=== PATIENT | female | born 1935 | race Caucasian/White ===

== ENCOUNTER 2019-01-02 13:41 | Inpatient (IN) | payer MEDICARE, OTHER ==
[~2019-01-02] VITALS: Ht 165.1 cm; Wt 63.5 kg
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
[2019-01-02] MEDS ORDERED: METH10TA80 PO (13:51)
[2019-01-02] MEDS ORDERED: IV NS 0.9% 500 ML BAG IV ONE (14:00)
[2019-01-02 14:01] LABS: BASOPHILS % (AUTO) 0.6 % (0.0-2.0); HEMATOCRIT 46 % (33-45); HEMOGLOBIN 15.5 g/dL (11.5-14.8); LYMPHOCYTES # (AUTO) 0.9 /CMM (0.8-4.8); LYMPHOCYTES % (AUTO) 12.3 % (20.0-44.0); MEAN CORPUSCULAR HGB CONC 34 g/dl (31.0-36.0); MEAN CORPUSCULAR VOLUME 96 fL (82-100); MONOCYTES # (AUTO) 0.5 /CMM (0.1-1.30); MONOCYTES % (AUTO) 6.6 % (2.0-12.0); NEUTROPHILS # (AUTO) 5.6 /CMM (1.8-8.9); NEUTROPHILS % (AUTO) 78.5 % (43.0-81.0); PLATELET COUNT (AUTO) 190 /CMM (150-450); WHITE BLOOD COUNT (AUTO) 7.2 K/uL (4.3-11.0)
[2019-01-02 14:14] LABS: CALCIUM, SERUM 9.8 mg/dL (8.5-10.1); CARBON DIOXIDE 27 mmol/L (21-32); CHLORIDE 107 mmol/L (98-107); GLUCOSE 129 mg/dL (74-106); POTASSIUM 3.9 mmol/L (3.5-5.1); SODIUM SERUM 143 mmol/L (136-145); UREA NITROGEN, BLOOD 11 mg/dL (7-18)
[2019-01-02 14:19] LABS: ALANINE AMINOTRANSFERASE 25 U/L (12-78); ALBUMIN 3.7 g/dL (3.4-5.0); ALKALINE PHOSPHATASE 105 U/L (46-116); ASPARTATE AMINOTRANSFERASE 22 U/L (15-37); BILIRUBIN,DIRECT 0.2 mg/dL (0.0-0.2); BILIRUBIN,TOTAL 0.8 mg/dL (0.2-1.0); TOTAL PROTEIN, SERUM 7.5 g/dL (6.4-8.2)
[2019-01-02] MEDS ORDERED: ASPI-1169 PO (15:55)
[2019-01-02] MEDS ORDERED: ATOR40TA PO (15:55)
[2019-01-02 16:00] LABS: THYROID STIMULATING HORMONE 3.605 uIU/mL (0.358-3.74)
--- NOTE | 2019-01-02 16:04 | NUR ---
CALLED NURSING SUP REQUESTED TELE BED FOR THIS PATIENT
--- NOTE | 2019-01-02 16:04 | NUR ---
PAGED MARANDA FOR ADMISSION
[2019-01-02] MEDS ORDERED: IV NS 0.9% 1,000 ML IV PRN (16:16)
[2019-01-02] MEDS ORDERED: ONDANSETRON HCL/PF 4 MG/2 ML VIAL IVP PRN (16:30)
[2019-01-02] MEDS ORDERED: ZOLPIDEM TARTRATE 5 MG TABLET PO PRN (16:30)
[2019-01-02] MEDS ORDERED: ACETAMINOPHEN 325 MG TABLET PO PRN (16:30)
[2019-01-02] MEDS ORDERED: hydrALAZINE HCL 25 MG TABLET PO PRN (16:30)
[2019-01-02] MEDS ORDERED: MAGNESIUM HYDROXIDE 30 ML UDC PO PRN (16:30)
[2019-01-02] MEDS ORDERED: Z GUARD REMEDY 2 OZ OINT TP PRN (16:30)
[2019-01-02] MEDS ORDERED: HYDROCODONE/APAP 5/325MG 1 EACH TABLET PO PRN (16:30)
[2019-01-02] MEDS ORDERED: MAG HYDROX/AL HYDROX/SIMETH 30 ML UDC PO PRN (16:30)
[2019-01-02 16:31] LABS: APPEARANCE,URINE Clear (CLEAR); BILIRUBIN,URINE Negative (NEGATIVE); BLOOD, URINE Negative Ery/uL (NEGATIVE); COLOR,URINE Yellow (YELLOW); KETONES,URINE Negative (NEGATIVE); LEUKOCYTE ESTERASE ,URINE Trace (NEGATIVE); NITRITE, URINE Negative (NEGATIVE); PROTEIN,URINE Trace mg/dl (NEGATIVE); UGLUCOSE Negative (NEGATIVE); UROBILINOGEN,URINE 0.2 EU/dL (0.2)
--- NOTE | 2019-01-02 16:32 | NUR ---
ADMIT TO 114-1 TELE DX AMS ACCPEBRADLEY LOW
[2019-01-02 16:57] LABS: BACTERIA,URINE None seen /HPF (None Seen); RBC,URINE 0-2 /HPF (0-2); SQUAMOUS EPITHELIAL CELL,UR Few /HPF (None Seen)
[2019-01-02 17:00] VITALS: BP 144/73
[2019-01-02] MEDS ORDERED: ENOXAPARIN SODIUM 40 MG/0.4 ML DISP.SYRIN SQ SCH (17:02)
--- NOTE | 2019-01-02 17:07 | NUR ---
GIVEN BEDSIDE REPORT TO CHARGE NURSE LANIE PEACOCK AND LANIE SHEA FOR [place], PT WAS TRANSPORTED VIA [facility]
--- NOTE | 2019-01-02 17:15 | NUR ---
RN NOTE PT ARRIVED FROM ER ON GURNEY, AOX3, WITH DAUGHTER AT BEDSIDE, NO WEAKNESS NOTED IN EXTREMITIES, ABLE TO AMBULATE, SPEECH CLEAR, FACE SYMMETRICAL, ABLE TO SWALLOW WITHOUT DIFFICULTY, SR 72 ON TEMPLATE REPRODUCTION TECHNICIAN, VS STABLE, IV INTACT AND IN PLACE, SKIN INTACT. SAFETY MEASURES IN PLACE, CALL LIGHT WITHIN REACH, WILL MONITOR AND CARRY OUT ADMITTING ORDERS.
[2019-01-02] MEDS: BLOOD SUGAR DIAGNOSTIC 1 EACH STRIP IN SCH ×2 (17:41→22:35)
--- NOTE | 2019-01-02 19:30 | NUR ---
DENTAL SURGEON PT DECLINED SCDs.
[2019-01-02 20:00] VITALS: BP 140/66
[2019-01-02] MEDS ORDERED: ALPRAZOLAM 0.25 MG TABLET PO ONE (21:00)
[2019-01-03] VITALS: BP 125/52
[2019-01-03 04:00] VITALS: BP 145/65
--- NOTE | 2019-01-03 07:10 | NUR ---
ENGRAVER SET UP OPERATOR INITIAL NOTE RECEIVED PT RESTING IN BED AOX3. ON ROOM AIR, TOLERATING WELL, NO SOB AND DISTRESS NOTED. NO WEAKNESS NOTED IN EXTREMITIES, SPEECH CLEAR, FACE SYMMETRICAL, ABLE TO SWALLOW WITHOUT DIFFICULTY, ON TELE MONITOR SR WITH HR 65. IV SITE LEFT AC 20G, INTACT AND IN PLACE, NS RUNNING AT 75ML/HR, NO INFILTRATION NOTED. SAFETY MEASURES IN PLACE, CALL LIGHT WITHIN REACH, WILL CONTINUE TO MONITOR PT THROUGHOUT SHIFT.
[2019-01-03 07:58] LABS: BASOPHILS % (AUTO) 0.9 % (0.0-2.0); EOSINOPHILS % (AUTO) 5.1 % (0.0-6.0); HEMATOCRIT 40 % (33-45); HEMOGLOBIN 13.3 g/dL (11.5-14.8); LYMPHOCYTES % (AUTO) 20.9 % (20.0-44.0); MEAN CORPUSCULAR HGB CONC 34 g/dl (31.0-36.0); MEAN CORPUSCULAR VOLUME 97 fL (82-100); MONOCYTES # (AUTO) 0.5 /CMM (0.1-1.30); MONOCYTES % (AUTO) 9.3 % (2.0-12.0); NEUTROPHILS # (AUTO) 3.2 /CMM (1.8-8.9); NEUTROPHILS % (AUTO) 63.8 % (43.0-81.0); PLATELET COUNT (AUTO) 178 /CMM (150-450); RED BLOOD CELL COUNT(AUTO) 4.11 MIL/uL (4.0-5.2)
[2019-01-03 08:00] VITALS: BP_SYST 143; BP_SYST 152; BP_DIAS 65; BP_DIAS 70
[2019-01-03] MEDS: BLOOD SUGAR DIAGNOSTIC 1 EACH STRIP IN SCH (08:00)
[2019-01-03 08:35] LABS: CALCIUM, SERUM 9.1 mg/dL (8.5-10.1); CARBON DIOXIDE 29 mmol/L (21-32); CHLORIDE 111 mmol/L (98-107); CREATININE 0.8 mg/dL (0.6-1.3); GLUCOSE 88 mg/dL (74-106); MAGNESIUM 1.9 mg/dL (1.8-2.4); PHOSPHORUS 3.5 mg/dL (2.5-4.9); SODIUM SERUM 146 mmol/L (136-145); UREA NITROGEN, BLOOD 10 mg/dL (7-18)
[2019-01-03 08:37] LABS: CHOLESTEROL 174 mg/dL (<200); HDL CHOLESTEROL 84 mg/dL (40-60); LDL 77 mg/dL (0-99); TRIGLYCERIDES 75 mg/dL (30-150)
[2019-01-03] MEDS ORDERED: ASPIRIN EC 325 MG TABLET.DR PO SCH ×2 (09:00)
[2019-01-03] MEDS ORDERED: ALPRAZOLAM 0.5 MG TABLET PO PRN (09:00)
[2019-01-03] MEDS ORDERED: METHIMAZOLE (5MG) 5 MG TABLET PO SCH (09:00)
[2019-01-03] MEDS ORDERED: ASPIRIN 81 MG TAB.CHEW PO SCH (09:00)
--- NOTE | 2019-01-03 11:35 | NUR ---
ADMINISTRATOR SOCIAL WELFARE NOTES DISCHARGE ORDER PER MD NOTED. PATIENT ALERT AND ORIENTED X3. ON ROOM AIR, TOLERATING WELL, NO SOB AND DISTRESS NOTED. NO WEAKNESS NOTED IN EXTREMITIES, SPEECH CLEAR, FACE SYMMETRICAL, ABLE TO SWALLOW WITHOUT DIFFICULTY. ALL NEEDS MET. ALL MD ORDERS ATTENDED. IV REMOVED, SITE CLEAN DRY AND INTACT. EXIT CARE DONE. DISCHARGE PAPERS SIGNED AND RECORDED. PT LEFT THE UNIT WITH DAUGHTER TIA.
[2019-01-03] MEDS ORDERED: ATORVASTATIN 40 MG TABLET PO SCH (22:00)
== END 2019-01-03 11:45 | disposition home or self-care (01) | DRG 69 ==
LOC: ER 13:47 → TELE1 16:40 → MEDSG1 01-03 08:20
PROVIDERS: ADMIT Internal Medicine; ATTEND Internal Medicine
DX: G45.9 Transient cerebral ischemic attack, unspecified (principal); K51.90 Ulcerative colitis, unspecified, without complications; E78.5 Hyperlipidemia, unspecified; E05.90 Thyrotoxicosis, unspecified without thyrotoxic crisis or storm; Z86.73 Personal history of transient ischemic attack (TIA), and cerebral infarction without residual deficits; Z79.899 Other long term (current) drug therapy; Z79.82 Long term (current) use of aspirin; F41.9 Anxiety disorder, unspecified
CPT/HCPCS: 36415; 70450-TC; 71045-TC; 80048-TC; 80061-TC; 80076-TC; 80305; 81000-TC; 82962-TC; 83735-TC; 84100-TC; 84439-TC; 84443-TC; 84484-TC; 85025-TC; 85652-TC; 85730-TC; 87081-TC; 87086-TC; 92611-TC; 93307-TC; 93880-TC; G0378; J1650; J7030; J7040

== ENCOUNTER 2019-12-08 14:22 | Emergency (ER) | payer MEDICARE, OTHER ==
[~2019-12-08] VITALS: Ht 162.6 cm; Wt 62.6 kg
[~2019-12-08 14:22] MED LIST: ASPI-1169 PO; ATOR40TA PO; METH10TA80 PO
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
[2019-12-08] MEDS ORDERED: ASPI-1169 PO (15:00)
[2019-12-08] MEDS ORDERED: METO25TA3 PO (15:00)
[2019-12-08] MEDS ORDERED: METH10TA80 PO (15:00)
[2019-12-08 15:20] LABS: BASOPHILS # (AUTO) 0.1 /CMM (0.0-0.2); BASOPHILS % (AUTO) 0.8 % (0.0-2.0); EOSINOPHILS % (AUTO) 0.8 % (0.0-6.0); HEMATOCRIT 44 % (33-45); HEMOGLOBIN 14.5 g/dL (11.5-14.8); LYMPHOCYTES # (AUTO) 0.8 /CMM (0.8-4.8); LYMPHOCYTES % (AUTO) 9.4 % (20.0-44.0); MEAN CORPUSCULAR HGB CONC 33 g/dl (31.0-36.0); MEAN CORPUSCULAR VOLUME 96 fL (82-100); MONOCYTES # (AUTO) 0.6 /CMM (0.1-1.30); MONOCYTES % (AUTO) 7.2 % (2.0-12.0); NEUTROPHILS # (AUTO) 6.6 /CMM (1.8-8.9); NEUTROPHILS % (AUTO) 81.8 % (43.0-81.0); PLATELET COUNT (AUTO) 185 /CMM (150-450); RED BLOOD CELL COUNT(AUTO) 4.53 MIL/uL (4.0-5.2); WHITE BLOOD COUNT (AUTO) 8.1 K/uL (4.3-11.0)
[2019-12-08 15:34] LABS: CARBON DIOXIDE 26 mmol/L (21-32); CHLORIDE 109 mmol/L (98-107); CREATININE 0.9 mg/dL (0.6-1.3); GLUCOSE 105 mg/dL (74-106); SODIUM SERUM 144 mmol/L (136-145); UREA NITROGEN, BLOOD 13 mg/dL (7-18)
--- NOTE | 2019-12-08 15:37 | NUR ---
BROUGHT TO CT
[2019-12-08 15:39] LABS: ALANINE AMINOTRANSFERASE 17 U/L (12-78); ALBUMIN 3.5 g/dL (3.4-5.0); ALKALINE PHOSPHATASE 89 U/L (46-116); ASPARTATE AMINOTRANSFERASE 22 U/L (15-37); BILIRUBIN,DIRECT 0.1 mg/dL (0.0-0.2); BILIRUBIN,TOTAL 0.9 mg/dL (0.2-1.0); TOTAL PROTEIN, SERUM 6.9 g/dL (6.4-8.2)
--- NOTE | 2019-12-08 15:52 | NUR ---
BROUGHT BACK FROM CT
--- NOTE | 2019-12-08 16:35 | NUR ---
Patient discharged to home in stable condition. Written and verbal after care instructions given. Patient verbalizes understanding of instruction. Pt ambulated with steady gait. VSS. Left with family.
[2019-12-08 16:36] VITALS: BP 152/88
== END 2019-12-08 16:44 | disposition home or self-care (01) ==
LOC: ER 14:26
DX: G45.9 Transient cerebral ischemic attack, unspecified (principal); E05.90 Thyrotoxicosis, unspecified without thyrotoxic crisis or storm; E78.5 Hyperlipidemia, unspecified; Z90.49 Acquired absence of other specified parts of digestive tract; Z98.890 Other specified postprocedural states; Z60.2 Problems related to living alone; Z79.82 Long term (current) use of aspirin; Z79.899 Other long term (current) drug therapy
CPT/HCPCS: 36415; 70450-TC; 71045-TC; 80048-TC; 80076-TC; 84484-TC; 85025-TC; 85730-TC

== ENCOUNTER 2023-11-12 16:44 | Inpatient (IN) | payer MEDICARE, BC ==
[~2023-11-12] VITALS: Ht 167.6 cm; Wt 65.9 kg
[~2023-11-12 16:44] MED LIST changes: +METO25TA3 PO
[2023-11-12] MEDS ORDERED: ONDANSETRON HCL/PF 4 MG/2 ML VIAL IVP PRN (21:30)
[2023-11-12] MEDS ORDERED: LORAZEPAM INJ 2 MG/ML VIAL IV ONE (22:00)
[2023-11-12] MEDS ORDERED: HYDROMORPHONE 1 MG/1 ML DISP.SYRIN IV PRN (22:30)
[2023-11-12] MEDS: IV NS 0.9% 1,000 ML IV PRN (22:31)
[2023-11-12] MEDS ORDERED: ZOSYN IVPB 3.375 G in IV D5W 50ml IV SCH (23:00)
[2023-11-12] MEDS ORDERED: LORAZEPAM INJ 2 MG/ML VIAL ONE (23:03)
[2023-11-13] MEDS ORDERED: PIPERACI/TAZO 3.375GM/D5W 50ML PB IV ONE (00:09)
[2023-11-13 03:35] LABS: BASOPHILS # (AUTO) 0.1 K/uL (0.0-0.2); BASOPHILS % (AUTO) 0.4 % (0.0-2.0); HEMATOCRIT 43 % (33-45); HEMOGLOBIN 13.9 g/dL (11.5-14.8); LYMPHOCYTES # (AUTO) 0.7 K/uL (0.8-4.8); LYMPHOCYTES % (AUTO) 2.7 % (20.0-44.0); MEAN CORPUSCULAR HEMOGLOBIN 32 PG (26.0-33.0); MEAN CORPUSCULAR HGB CONC 32 g/dl (31.0-36.0); MEAN CORPUSCULAR VOLUME 97 fL (82-100); MONOCYTES # (AUTO) 1.7 K/uL (0.1-1.30); MONOCYTES % (AUTO) 6.9 % (2.0-12.0); NEUTROPHILS # (AUTO) 21.9 K/uL (1.8-8.9); PLATELET COUNT (AUTO) 138 K/uL (150-450); RED BLOOD CELL COUNT(AUTO) 4.42 MIL/uL (4.0-5.2); RED CELL DISTRIBUTION WIDTH 15.9 % (11.5-15.0); WHITE BLOOD COUNT (AUTO) 24.3 K/uL (4.3-11.0)
[2023-11-13 03:48] LABS: BILIRUBIN,DIRECT 0.3 mg/dL (0.0-0.2); BILIRUBIN,TOTAL 1.6 mg/dL (0.2-1.0); CALCIUM, SERUM 9.2 mg/dL (8.5-10.1); CREATININE 0.9 mg/dL (0.6-1.3); INR 1.03 (0.91-1.10); MAGNESIUM 2.3 mg/dL (1.8-2.4); PARTIAL THROMBOPLASTIN TIME 25.3 SEC (24.3-34.3); PHOSPHORUS 3.7 mg/dL (2.5-4.9); POTASSIUM 4.3 mmol/L (3.5-5.1); PROTHROMBIN TIME 10.9 SECS (9.2-11.1)
[2023-11-13 03:55] LABS: ALBUMIN 2.5 g/dL (3.4-5.0)
[2023-11-13] MEDS ORDERED: IOHEXOL 50 ML IV ONE (04:30)
[2023-11-13] MEDS ORDERED: INDOMETHACIN 100 MG SUPP.RECT ONE (04:30)
[2023-11-13] MEDS ORDERED: ANESTHESIA TRAY IN PYXIS 1 EA TRAY MC ONE (04:30)
[2023-11-13 04:46] VITALS: BP 133/59; TEMP 98.7; O2SAT 95
[2023-11-13] MEDS ORDERED: FENTANYL PF 100MCG/2ML AMPUL ONE (04:48)
[2023-11-13] MEDS ORDERED: ATOR80TA PO (08:17)
[2023-11-13] MEDS ORDERED: LOSA25TA27 PO (08:17)
[2023-11-13] MEDS ORDERED: ALPR0.5T8 PO (08:17)
[2023-11-13] MEDS: PANTOPRAZOLE 40 MG VIAL IV SCH (08:43)
[2023-11-13 09:03] LABS: BASOPHILS % (AUTO) 0.1 % (0.0-2.0); HEMATOCRIT 39 % (33-45); HEMOGLOBIN 12.8 g/dL (11.5-14.8); LYMPHOCYTES # (AUTO) 0.4 K/uL (0.8-4.8); LYMPHOCYTES % (AUTO) 1.8 % (20.0-44.0); MEAN CORPUSCULAR HEMOGLOBIN 32 PG (26.0-33.0); MEAN CORPUSCULAR HGB CONC 33 g/dl (31.0-36.0); MEAN CORPUSCULAR VOLUME 96 fL (82-100); MONOCYTES % (AUTO) 4.8 % (2.0-12.0); NEUTROPHILS % (AUTO) 93.3 % (43.0-81.0); PLATELET COUNT (AUTO) 135 K/uL (150-450); RED BLOOD CELL COUNT(AUTO) 4.06 MIL/uL (4.0-5.2); WHITE BLOOD COUNT (AUTO) 21.5 K/uL (4.3-11.0)
[2023-11-13 09:25] LABS: ALBUMIN 2.2 g/dL (3.4-5.0); BILIRUBIN,TOTAL 1.4 mg/dL (0.2-1.0); CALCIUM, SERUM 8.7 mg/dL (8.5-10.1); CREATININE 0.9 mg/dL (0.6-1.3); POTASSIUM 4.2 mmol/L (3.5-5.1); TOTAL PROTEIN, SERUM 6.3 g/dL (6.4-8.2)
[2023-11-13 10:31] LABS: PHOSPHORUS 2.9 mg/dL (2.5-4.9)
[2023-11-13 10:40] LABS: THYROID STIMULATING HORMONE 0.977 uIU/mL (0.358-3.74)
[2023-11-13] MEDS: PIPERACILLIN /TAZOBACTAM 3.375 G in IV D5W 100 ML IV SCH ×2 (11:45→20:23)
[2023-11-13 12:00] VITALS: BP 128/62; TEMP 98.8; O2SAT 95
[2023-11-13] MEDS: ACETAMINOPHEN 325 MG TABLET PO PRN (14:43)
[2023-11-13] MEDS ORDERED: LORAZEPAM 0.5 MG TABLET PO PRN (15:00)
[2023-11-13] MEDS: IV NS 0.9% 1,000 ML IV PRN (19:34)
[2023-11-13 20:51] VITALS: BP 118/57; TEMP 98; O2SAT 94
[2023-11-14] MEDS: PIPERACILLIN /TAZOBACTAM 3.375 G in IV D5W 100 ML IV SCH (03:54)
[2023-11-14 04:00] VITALS: BP 123/64; TEMP 98.1; O2SAT 94
[2023-11-14] MEDS ORDERED: ANESTHESIA TRAY IN PYXIS 1 EA TRAY MC ONE (05:57)
[2023-11-14] MEDS ORDERED: BUPIVACAINE MPF 0.5% W/EPI INJ 30 ML VIAL ONE (05:57)
[2023-11-14] MEDS ORDERED: BACITRACIN ZINC OINT (15 GM) 15 GM TUBE TP ONE (05:58)
[2023-11-14] MEDS ORDERED: LIDOCAINE 1% INJ 50 ML MDV IJ ONE (05:58)
[2023-11-14] MEDS ORDERED: FENTANYL PF 250MCG/5ML AMPUL ONE (06:27)
[2023-11-14] MEDS ORDERED: ROCURONIUM BROMIDE 50 MG/5 ML ONE (06:28)
[2023-11-14] MEDS ORDERED: PHYTONADIONE INJ 10 MG/1 ML AMPUL ONE (08:03)
[2023-11-14] MEDS: PANTOPRAZOLE 40 MG VIAL IV SCH (09:00)
[2023-11-14] MEDS ORDERED: FENTANYL PF 100MCG/2ML AMPUL ONE (10:26)
[2023-11-14] MEDS: HYDROMORPHONE INJ 2 MG/ML DISP.SYRIN IV PRN (11:12)
[2023-11-14 12:00] VITALS: BP 140/62; TEMP 98; O2SAT 94
[2023-11-14] MEDS: CELECOXIB 100 MG CAPSULE PO SCH ×3 (12:00→23:02)
[2023-11-14] MEDS: GABAPENTIN 300 MG CAPSULE PO SCH ×2 (12:00→20:04)
[2023-11-14] MEDS ORDERED: ACETAMINOPHEN 325 MG TABLET PO PRN (12:00)
[2023-11-14] MEDS: ZOSYN IVPB 3.375 G in IV D5W 50ml IV SCH ×3 (12:06→23:02)
[2023-11-14] MEDS: IV LR 1000 ML 1,000 ML IV PRN (15:28)
[2023-11-14 17:02] VITALS: BP 107/54; TEMP 98.2; O2SAT 95
[2023-11-14] MEDS: ACETAMINOPHEN 325 MG TABLET PO PRN (18:22)
[2023-11-14 20:00] VITALS: BP 112/57; TEMP 97.9; O2SAT 95
[2023-11-15] MEDS: HYDROMORPHONE INJ 2 MG/ML DISP.SYRIN IV PRN ×2 (01:58→08:41)
[2023-11-15] MEDS: IV LR 1000 ML 1,000 ML IV PRN ×3 (03:01→23:01)
[2023-11-15 04:00] VITALS: BP 108/60; TEMP 97.5; O2SAT 96
[2023-11-15] MEDS: GABAPENTIN 300 MG CAPSULE PO SCH ×3 (04:14→20:21)
[2023-11-15] MEDS: ZOSYN IVPB 3.375 G in IV D5W 50ml IV SCH ×4 (05:33→23:09)
[2023-11-15 07:20] LABS: EOSINOPHILS % (AUTO) 0.1 % (0.0-6.0); HEMATOCRIT 35 % (33-45); HEMOGLOBIN 11.6 g/dL (11.5-14.8); LYMPHOCYTES # (AUTO) 0.5 K/uL (0.8-4.8); LYMPHOCYTES % (AUTO) 3.3 % (20.0-44.0); MEAN CORPUSCULAR HEMOGLOBIN 32 PG (26.0-33.0); MEAN CORPUSCULAR HGB CONC 33 g/dl (31.0-36.0); MEAN CORPUSCULAR VOLUME 95 fL (82-100); MONOCYTES # (AUTO) 0.6 K/uL (0.1-1.30); MONOCYTES % (AUTO) 4.7 % (2.0-12.0); NEUTROPHILS # (AUTO) 12.7 K/uL (1.8-8.9); NEUTROPHILS % (AUTO) 91.9 % (43.0-81.0); PLATELET COUNT (AUTO) 179 K/uL (150-450); RED BLOOD CELL COUNT(AUTO) 3.69 MIL/uL (4.0-5.2); WHITE BLOOD COUNT (AUTO) 13.9 K/uL (4.3-11.0)
[2023-11-15 07:32] LABS: ALBUMIN 1.5 g/dL (3.4-5.0); BILIRUBIN,DIRECT 0.3 mg/dL (0.0-0.2); BILIRUBIN,TOTAL 0.8 mg/dL (0.2-1.0); TOTAL PROTEIN, SERUM 5.5 g/dL (6.4-8.2)
[2023-11-15 07:49] LABS: CALCIUM, SERUM 7.3 mg/dL (8.5-10.1); CREATININE 0.9 mg/dL (0.6-1.3); MAGNESIUM 2.2 mg/dL (1.8-2.4); PHOSPHORUS 3.5 mg/dL (2.5-4.9); POTASSIUM 4.1 mmol/L (3.5-5.1)
[2023-11-15] MEDS: PANTOPRAZOLE 40 MG TABLET.DR PO SCH (08:31)
[2023-11-15] MEDS ORDERED: HYDROCODONE/APAP 5/325MG TABLET PO PRN (11:00)
[2023-11-15] MEDS: METHIMAZOLE (5MG) 5 MG TABLET PO SCH (11:10)
[2023-11-15] MEDS: LOSARTAN POTASSIUM 25 MG TABLET PO SCH (11:10)
[2023-11-15] MEDS: CELECOXIB 100 MG CAPSULE PO SCH ×2 (11:12→23:09)
[2023-11-15] MEDS ORDERED: MAGNESIUM HYDROXIDE 30 ML UDC PO PRN (13:30)
[2023-11-15 16:00] VITALS: BP 136/62; TEMP 98; O2SAT 95
[2023-11-15 17:04] LABS: HEMOGLOBIN 12.2 g/dL (11.5-14.8)
[2023-11-15] MEDS: HYDROMORPHONE 1 MG/1 ML DISP.SYRIN IV PRN (18:09)
[2023-11-15 20:00] VITALS: BP 117/55; TEMP 97.9; O2SAT 98
[2023-11-15] MEDS: LORAZEPAM INJ 2 MG/ML VIAL IV SCH (22:00)
[2023-11-15] MEDS: ATORVASTATIN 40 MG TABLET PO SCH (22:00)
[2023-11-15] MEDS ORDERED: diphenhydrAMINE HCL 50 MG/ML VIAL IV ONE (23:00)
[2023-11-16 04:00] VITALS: BP 125/59; TEMP 98.4; O2SAT 96
[2023-11-16] MEDS: GABAPENTIN 300 MG CAPSULE PO SCH ×4 (04:00→20:25)
[2023-11-16] MEDS: HYDROMORPHONE 1 MG/1 ML DISP.SYRIN IV PRN ×2 (04:52→13:20)
[2023-11-16] MEDS: ZOSYN IVPB 3.375 G in IV D5W 50ml IV SCH (05:04)
[2023-11-16 07:04] LABS: BASOPHILS % (AUTO) 0.1 % (0.0-2.0); EOSINOPHILS # (AUTO) 0.1 K/uL (0.0-0.7); EOSINOPHILS % (AUTO) 0.5 % (0.0-6.0); HEMATOCRIT 27 % (33-45); HEMOGLOBIN 9.3 g/dL (11.5-14.8); LYMPHOCYTES # (AUTO) 0.6 K/uL (0.8-4.8); LYMPHOCYTES % (AUTO) 4.6 % (20.0-44.0); MEAN CORPUSCULAR HEMOGLOBIN 32 PG (26.0-33.0); MEAN CORPUSCULAR HGB CONC 34 g/dl (31.0-36.0); MEAN CORPUSCULAR VOLUME 94 fL (82-100); MONOCYTES # (AUTO) 1.1 K/uL (0.1-1.30); MONOCYTES % (AUTO) 8.5 % (2.0-12.0); NEUTROPHILS # (AUTO) 10.8 K/uL (1.8-8.9); NEUTROPHILS % (AUTO) 86.3 % (43.0-81.0); PLATELET COUNT (AUTO) 157 K/uL (150-450); RED CELL DISTRIBUTION WIDTH 14.7 % (11.5-15.0); WHITE BLOOD COUNT (AUTO) 12.6 K/uL (4.3-11.0)
[2023-11-16 08:00] VITALS: BP 108/59; TEMP 98.6; O2SAT 96
[2023-11-16 08:07] LABS: BILIRUBIN,TOTAL 0.9 mg/dL (0.2-1.0); CALCIUM, SERUM 8.5 mg/dL (8.5-10.1); CREATININE 0.8 mg/dL (0.6-1.3); MAGNESIUM 2.3 mg/dL (1.8-2.4); PHOSPHORUS 2.2 mg/dL (2.5-4.9); POTASSIUM 3.4 mmol/L (3.5-5.1); TOTAL PROTEIN, SERUM 5.1 g/dL (6.4-8.2)
[2023-11-16 08:37] LABS: ALBUMIN 1.2 g/dL (3.4-5.0)
[2023-11-16] MEDS: PANTOPRAZOLE 40 MG TABLET.DR PO SCH (09:00)
[2023-11-16] MEDS: LOSARTAN POTASSIUM 25 MG TABLET PO SCH (09:00)
[2023-11-16] MEDS: IV LR 1000 ML 1,000 ML IV PRN (09:42)
[2023-11-16] MEDS ORDERED: POTASSIUM CHLORIDE 20 MEQ POWDER PACKET PO ONE (10:00)
[2023-11-16] MEDS: Potassium Chloride 10 MEQ, LIDOCAINE HCL/PF 1% 1 ML in IV D5W 50 ML IV SCH ×2 (10:29→11:57)
[2023-11-16] MEDS: METHIMAZOLE (5MG) 5 MG TABLET PO SCH ×2 (11:00→11:57)
[2023-11-16] MEDS: CELECOXIB 100 MG CAPSULE PO SCH ×2 (11:57→12:00)
[2023-11-16 16:00] VITALS: BP 116/53; TEMP 98.8; O2SAT 95
[2023-11-16] MEDS ORDERED: K PHOS NEUTRAL 250 MG TABLET PO ONE (16:00)
[2023-11-16] MEDS: PIPERACILLIN /TAZOBACTAM 3.375 G in IV D5W 100 ML IV SCH ×2 (16:27→20:26)
[2023-11-16] MEDS ORDERED: NEUTRA PHOS 1 POWD.PACKET GT ONE (16:30)
[2023-11-16] MEDS ORDERED: PIPERACILLIN /TAZOBACTAM 3.375 G in IV D5W 50 ML IV SCH (18:00)
[2023-11-16 20:00] VITALS: BP 134/52; TEMP 98.6; O2SAT 95
[2023-11-16] MEDS: ATORVASTATIN 40 MG TABLET PO SCH (21:44)
[2023-11-16] MEDS: LORAZEPAM INJ 2 MG/ML VIAL IV SCH (22:00)
[2023-11-16] MEDS: ALPRAZOLAM 0.25 MG TABLET PO PRN (22:06)
[2023-11-17] MEDS: CELECOXIB 100 MG CAPSULE PO SCH ×2 (00:15→11:58)
[2023-11-17 04:00] VITALS: BP 117/50; TEMP 99; O2SAT 95
[2023-11-17] MEDS: GABAPENTIN 300 MG CAPSULE PO SCH ×3 (04:29→20:47)
[2023-11-17] MEDS: PIPERACILLIN /TAZOBACTAM 3.375 G in IV D5W 100 ML IV SCH ×3 (04:29→21:15)
[2023-11-17] MEDS: IV LR 1000 ML 1,000 ML IV PRN (04:30)
[2023-11-17 06:51] LABS: BASOPHILS % (AUTO) 0.2 % (0.0-2.0); EOSINOPHILS # (AUTO) 0.4 K/uL (0.0-0.7); EOSINOPHILS % (AUTO) 3.5 % (0.0-6.0); HEMATOCRIT 24 % (33-45); HEMOGLOBIN 8.2 g/dL (11.5-14.8); LYMPHOCYTES # (AUTO) 0.6 K/uL (0.8-4.8); LYMPHOCYTES % (AUTO) 5.3 % (20.0-44.0); MEAN CORPUSCULAR HEMOGLOBIN 32 PG (26.0-33.0); MEAN CORPUSCULAR HGB CONC 34 g/dl (31.0-36.0); MEAN CORPUSCULAR VOLUME 94 fL (82-100); MONOCYTES # (AUTO) 0.9 K/uL (0.1-1.30); MONOCYTES % (AUTO) 7.5 % (2.0-12.0); NEUTROPHILS # (AUTO) 9.7 K/uL (1.8-8.9); NEUTROPHILS % (AUTO) 83.5 % (43.0-81.0); PLATELET COUNT (AUTO) 169 K/uL (150-450); RED BLOOD CELL COUNT(AUTO) 2.59 MIL/uL (4.0-5.2); RED CELL DISTRIBUTION WIDTH 14.7 % (11.5-15.0); WHITE BLOOD COUNT (AUTO) 11.6 K/uL (4.3-11.0)
[2023-11-17 07:13] LABS: CALCIUM, SERUM 8.4 mg/dL (8.5-10.1); CHLORIDE 108 mmol/L (98-107); CREATININE 0.8 mg/dL (0.6-1.3); GLUCOSE 112 mg/dL (74-106); MAGNESIUM 2.4 mg/dL (1.8-2.4); PHOSPHORUS 2.6 mg/dL (2.5-4.9); POTASSIUM 3.5 mmol/L (3.5-5.1); SODIUM SERUM 142 mmol/L (136-145)
[2023-11-17 07:47] LABS: CARBON DIOXIDE 27 mmol/L (21-32); UREA NITROGEN, BLOOD 18 mg/dL (7-18)
[2023-11-17 08:00] VITALS: BP 132/55; TEMP 97.7; O2SAT 96
[2023-11-17] MEDS: LOSARTAN POTASSIUM 25 MG TABLET PO SCH (08:33)
[2023-11-17 09:17] LABS: BILIRUBIN,DIRECT 0.2 mg/dL (0.0-0.2); BILIRUBIN,TOTAL 0.8 mg/dL (0.2-1.0); TOTAL PROTEIN, SERUM 5.1 g/dL (6.4-8.2)
[2023-11-17 09:18] LABS: ALBUMIN 1.3 g/dL (3.4-5.0)
[2023-11-17] MEDS: PANTOPRAZOLE 40 MG TABLET.DR PO SCH (10:11)
[2023-11-17] MEDS: METHIMAZOLE (5MG) 5 MG TABLET PO SCH (11:57)
[2023-11-17] MEDS ORDERED: ALPRAZOLAM 0.5 MG TABLET PO ONE (15:30)
[2023-11-17 16:00] VITALS: BP 123/56; TEMP 98.2; O2SAT 95
[2023-11-17 20:00] VITALS: BP 124/41; TEMP 98.2; O2SAT 98
[2023-11-17] MEDS: ATORVASTATIN 40 MG TABLET PO SCH (21:15)
[2023-11-17] MEDS: ALPRAZOLAM 0.25 MG TABLET PO PRN (22:12)
[2023-11-18] MEDS ORDERED: METHIMAZOLE (5MG) 5 MG TABLET PO SCH
[2023-11-18] MEDS: CELECOXIB 100 MG CAPSULE PO SCH ×3 (00:17→23:00)
[2023-11-18 04:00] VITALS: BP 128/62; TEMP 98.6; O2SAT 100
[2023-11-18] MEDS: PIPERACILLIN /TAZOBACTAM 3.375 G in IV D5W 100 ML IV SCH ×3 (04:19→20:22)
[2023-11-18] MEDS: GABAPENTIN 300 MG CAPSULE PO SCH ×3 (04:19→20:26)
[2023-11-18 06:48] LABS: BASOPHILS % (AUTO) 0.3 % (0.0-2.0); EOSINOPHILS # (AUTO) 0.5 K/uL (0.0-0.7); EOSINOPHILS % (AUTO) 4.8 % (0.0-6.0); HEMATOCRIT 25 % (33-45); HEMOGLOBIN 8.3 g/dL (11.5-14.8); LYMPHOCYTES # (AUTO) 0.7 K/uL (0.8-4.8); LYMPHOCYTES % (AUTO) 6.8 % (20.0-44.0); MEAN CORPUSCULAR HEMOGLOBIN 32 PG (26.0-33.0); MEAN CORPUSCULAR HGB CONC 34 g/dl (31.0-36.0); MEAN CORPUSCULAR VOLUME 94 fL (82-100); MONOCYTES % (AUTO) 10.2 % (2.0-12.0); NEUTROPHILS # (AUTO) 7.5 K/uL (1.8-8.9); NEUTROPHILS % (AUTO) 77.9 % (43.0-81.0); PLATELET COUNT (AUTO) 202 K/uL (150-450); RED BLOOD CELL COUNT(AUTO) 2.63 MIL/uL (4.0-5.2); RED CELL DISTRIBUTION WIDTH 14.8 % (11.5-15.0); WHITE BLOOD COUNT (AUTO) 9.6 K/uL (4.3-11.0)
[2023-11-18 06:56] LABS: BILIRUBIN,DIRECT 0.2 mg/dL (0.0-0.2); BILIRUBIN,TOTAL 0.8 mg/dL (0.2-1.0); TOTAL PROTEIN, SERUM 5.2 g/dL (6.4-8.2)
[2023-11-18 06:59] LABS: CALCIUM, SERUM 8.4 mg/dL (8.5-10.1); CREATININE 0.9 mg/dL (0.6-1.3); MAGNESIUM 2.2 mg/dL (1.8-2.4); PHOSPHORUS 3.1 mg/dL (2.5-4.9); POTASSIUM 3.1 mmol/L (3.5-5.1)
[2023-11-18 07:00] LABS: ALBUMIN 1.3 g/dL (3.4-5.0)
[2023-11-18 08:00] VITALS: BP 110/48; TEMP 97.9; O2SAT 95
[2023-11-18] MEDS: POTASSIUM CHLORIDE 20 MEQ TAB.PRT.SR PO SCH ×3 (08:17→12:31)
[2023-11-18] MEDS: LOSARTAN POTASSIUM 25 MG TABLET PO SCH (08:19)
[2023-11-18] MEDS: PANTOPRAZOLE 40 MG TABLET.DR PO SCH (08:20)
[2023-11-18] MEDS: ENSURE ENLIVE 237 ML LIQUID (VANILLA) PO SCH (08:21)
[2023-11-18 16:00] VITALS: BP 134/53; TEMP 98.1; O2SAT 96
[2023-11-18 20:00] VITALS: BP 122/51; TEMP 98.2; O2SAT 98
[2023-11-18] MEDS: ATORVASTATIN 40 MG TABLET PO SCH (21:21)
[2023-11-18] MEDS: ALPRAZOLAM 0.25 MG TABLET PO PRN (23:00)
[2023-11-19 04:00] VITALS: BP 121/49; TEMP 98.6; O2SAT 96
[2023-11-19] MEDS: PIPERACILLIN /TAZOBACTAM 3.375 G in IV D5W 100 ML IV SCH ×2 (04:02→12:32)
[2023-11-19] MEDS: GABAPENTIN 300 MG CAPSULE PO SCH ×2 (04:44→12:32)
[2023-11-19 07:07] LABS: BASOPHILS % (AUTO) 0.3 % (0.0-2.0); EOSINOPHILS # (AUTO) 0.5 K/uL (0.0-0.7); EOSINOPHILS % (AUTO) 3.7 % (0.0-6.0); HEMATOCRIT 28 % (33-45); HEMOGLOBIN 9.6 g/dL (11.5-14.8); LYMPHOCYTES # (AUTO) 0.9 K/uL (0.8-4.8); LYMPHOCYTES % (AUTO) 6.4 % (20.0-44.0); MEAN CORPUSCULAR HEMOGLOBIN 32 PG (26.0-33.0); MEAN CORPUSCULAR HGB CONC 34 g/dl (31.0-36.0); MEAN CORPUSCULAR VOLUME 95 fL (82-100); MONOCYTES # (AUTO) 1.3 K/uL (0.1-1.30); MONOCYTES % (AUTO) 8.9 % (2.0-12.0); NEUTROPHILS # (AUTO) 11.4 K/uL (1.8-8.9); NEUTROPHILS % (AUTO) 80.7 % (43.0-81.0); PLATELET COUNT (AUTO) 272 K/uL (150-450); RED CELL DISTRIBUTION WIDTH 15.1 % (11.5-15.0); WHITE BLOOD COUNT (AUTO) 14.2 K/uL (4.3-11.0)
[2023-11-19 07:48] LABS: CALCIUM, SERUM 9.1 mg/dL (8.5-10.1); CREATININE 0.9 mg/dL (0.6-1.3); MAGNESIUM 2.2 mg/dL (1.8-2.4); PHOSPHORUS 3.6 mg/dL (2.5-4.9)
[2023-11-19 08:00] VITALS: BP 112/52; TEMP 99; O2SAT 96
[2023-11-19] MEDS: ENSURE ENLIVE 237 ML LIQUID (VANILLA) PO SCH (08:00)
[2023-11-19 08:38] LABS: ANISOCYTOSIS 1+; BAND % (MANUAL) 2 % (0.0-5.0); BASOPHILS % (MANUAL) 0 % (0.0-2.0); EOSINOPHILS % (MANUAL) 3 % (0-4); LYMPHOCYTES % (MANUAL) 4 % (16-48); MONOCYTES % (MANUAL) 9 % (0-11.0); NEUTROPHILS % (MANUAL) 82 (42-76); PLATELET ESTIMATE ADEQUATE
[2023-11-19 08:39] LABS: BILIRUBIN,DIRECT 0.2 mg/dL (0.0-0.2)
[2023-11-19 08:49] LABS: ALBUMIN 1.4 g/dL (3.4-5.0)
[2023-11-19] MEDS: PANTOPRAZOLE 40 MG TABLET.DR PO SCH (09:22)
[2023-11-19] MEDS: LOSARTAN POTASSIUM 25 MG TABLET PO SCH (09:22)
[2023-11-19] MEDS: METHIMAZOLE (5MG) 5 MG TABLET PO SCH (10:07)
[2023-11-19] MEDS ORDERED: PIPE3.379 IV (12:26)
[2023-11-19] MEDS ORDERED: CELE100C PO (12:26)
[2023-11-19] MEDS ORDERED: GABA300C PO (12:26)
[2023-11-19] MEDS ORDERED: LACT-246 PO (12:26)
[2023-11-19] MEDS ORDERED: ENOX40DI SUBCUT (12:26)
[2023-11-19] MEDS ORDERED: PANT40TA49 PO (12:26)
[2023-11-19] MEDS ORDERED: VANC1FRO2 IV (12:26)
[2023-11-19] MEDS: CELECOXIB 100 MG CAPSULE PO SCH (12:32)
[2023-11-19 16:00] VITALS: BP 114/47; O2SAT 95
== END 2023-11-19 19:26 | DRG 854 ==
LOC: MEDSG1 21:42
PROVIDERS: ADMIT Nurse Practitioner Acute Care; ATTEND Nurse Practitioner Acute Care
PROC: 0FC98ZZ Extirpation of Matter from Common Bile Duct, Via Natural or Artificial Opening Endoscopic (ICD-10-PCS; principal; 2023-11-13)
PROC: 0F798DZ Dilation of Common Bile Duct with Intraluminal Device, Via Natural or Artificial Opening Endoscopic (ICD-10-PCS; 2023-11-13)
PROC: 0FT40ZZ Resection of Gallbladder, Open Approach (ICD-10-PCS; 2023-11-14)
PROC: 0FJ44ZZ Inspection of Gallbladder, Percutaneous Endoscopic Approach (ICD-10-PCS; 2023-11-14)
PROC: 0DNU0ZZ Release Omentum, Open Approach (ICD-10-PCS; 2023-11-14)
PROC: 0DN80ZZ Release Small Intestine, Open Approach (ICD-10-PCS; 2023-11-14)
PROC: 0DQ80ZZ Repair Small Intestine, Open Approach (ICD-10-PCS; 2023-11-14)
DX: A41.9 Sepsis, unspecified organism (principal); E44.0 Moderate protein-calorie malnutrition; K56.7 Ileus, unspecified; K51.90 Ulcerative colitis, unspecified, without complications; K80.46 Calculus of bile duct with acute and chronic cholecystitis without obstruction; E78.5 Hyperlipidemia, unspecified; Z86.73 Personal history of transient ischemic attack (TIA), and cerebral infarction without residual deficits; K82.A1 Gangrene of gallbladder in cholecystitis; K66.0 Peritoneal adhesions (postprocedural) (postinfection); Z90.49 Acquired absence of other specified parts of digestive tract; Z93.2 Ileostomy status; Z90.710 Acquired absence of both cervix and uterus; K21.9 Gastro-esophageal reflux disease without esophagitis; F41.9 Anxiety disorder, unspecified; E78.00 Pure hypercholesterolemia, unspecified; I10 Essential (primary) hypertension; E05.90 Thyrotoxicosis, unspecified without thyrotoxic crisis or storm; E88.09 Other disorders of plasma-protein metabolism, not elsewhere classified; K82.8 Other specified diseases of gallbladder; Z79.82 Long term (current) use of aspirin; Z79.899 Other long term (current) drug therapy; Z53.31 Laparoscopic surgical procedure converted to open procedure; E87.70 Fluid overload, unspecified; Z95.2 Presence of prosthetic heart valve; R33.9 Retention of urine, unspecified
CPT/HCPCS: 36415; 71045-TC; 74018; 80048-TC; 80053-TC; 80061-TC; 80076-TC; 82150-TC; 83690-TC; 83735-TC; 84100-TC; 84439-TC; 84443-TC; 85025-TC; 85027-TC; 85610-TC; 85730-TC; 88304-TC; 88307-TC; 97110-TC; 97112-TC; 97116-TC; 97530-TC; A4223; A6253; A6402; C2625; C9113; G0378; J0330; J0461; J0690; J1170; J1200; J1885; J2060; J2405; J2543; J2704; J3010; J3430; J3480; J3490; J7030; J7060; J7120; Q9967